=== PATIENT | male | born 1970 | race Caucasian/White ===

== ENCOUNTER → 2016-08-21 | Outpatient (CLI) | payer BC ==
[~2016-08-21] MED LIST: ACIDOPHILUS1 EAC3 PO; ALLOPURINOL 30300 M1 PO; FISH OIL 1,0001 EAC5 PO; JUICE PLUS PO; MULTIVITAMINS PO; PRAVASTATIN SOD10 MG PO; VITAMIN D-32000 UNIT PO
== END ==
LOC: CAT 08-01 11:21
DX: M51.27 Other intervertebral disc displacement, lumbosacral region (principal); M54.6 Pain in thoracic spine; M54.9 Dorsalgia, unspecified

== ENCOUNTER → 2019-05-26 | Outpatient (CLI) | payer OTHER | LOC: CAT 07:31 | DX: Z13.6 Encounter for screening for cardiovascular disorders (principal); E78.00 Pure hypercholesterolemia, unspecified; I25.10 Atherosclerotic heart disease of native coronary artery without angina pectoris ==